=== PATIENT | male | born 1975 | race Two or more races ===

== ENCOUNTER 2016-10-28 16:22 | Emergency (ER) | payer OTHER ==
[~2016-10-28] VITALS: Ht 177.8 cm; Wt 81.6 kg
== END 2016-10-28 19:44 | disposition home or self-care (01) ==
LOC: CED 16:22
DX: G44.219 Episodic tension-type headache, not intractable (principal); F17.200 Nicotine dependence, unspecified, uncomplicated
CPT/HCPCS: 99284